=== PATIENT | female | born 1955 ===

== ENCOUNTER 2025-04-30 15:03 | Outpatient (CLI) | payer MEDICAID, SELFPAY | END 2025-04-30 15:04 | disposition home or self-care (01) | LOC: LBO 15:04 | PROVIDERS: PCP Nurse Practitioner; Visit Provider Otolaryngology | DX: E04.2 Nontoxic multinodular goiter (principal); E03.9 Hypothyroidism, unspecified | CPT/HCPCS: 36415; 86376 ==